=== PATIENT | female | born 1985 | race Caucasian/White ===

== ENCOUNTER 2021-10-09 04:44 | Emergency (ER) | payer MEDICAID, SELFPAY ==
[2021-10-09 04:51] VITALS: BP 145/109; PULSE 91; RESP 16; TEMP 36.6; O2SAT 99; BMI 23.6
--- NOTE | 2021-10-09 06:32 | ED.URI ---
HPI - URI/Sore Throat General Chief Complaint: General Medical Stated Complaint: Sore throat/ +Covid Time Seen by Provider: 10/09/21 06:31 Source: patient Mode of arrival: ambulatory Limitations: no limitations History of Present Illness MD elicited complaint: sore throat Pertinent past history: other (dx with COVID on tuesday) Onset (ago): day(s) (3) Consistency: progressively worsening Severity: moderate Description of mucous: clear Able to tolerate fluids by mouth: Yes Exacerbating factors: swallowing Relieving factors: nothing Context: other (dx with COVID) Associated symptoms: fever, headache and sore throat Treatments prior to arrival: none Related Data Previous Rx's Medication Instructions Recorded azithromycin 250 mg tablet 250 mg PO DAILY 4 Days #4 tab 10/09/21 dexamethasone 6 mg tablet 6 mg PO DAILY 3 Days #3 tab 10/09/21 Allergies Allergy/AdvReac Type Severity Reaction Status Date / Time amoxicillin [AMOXICILLIN] Allergy Unknown NAUSEA & Unverified 06/26/20 16:58 VOMITING Review of Systems Review of Systems: Constitutional : positive Fever, positive Chills, positive fatigue, positive Malaise ENT/Mouth : positive sore throat, positive runny nose Eyes: No Discharge Cardiovascular : No Chest Pain, No SOB Respiratory : No Cough, No Sputum Gastrointestinal : No Nausea, No Vomiting, No Diarrhea Genitourinary : No Dysuria, No Urinary Frequency Musculoskeletal : positive Myalgia Skin : No rash Neuro : No Headache PMFSH Past Medical History Medical History COVID-19 Social History Social History (Updated 10/09/21 @ 07:21 by Vianney Grande DO) Patient Tobacco Use Status: Never used Tobacco Use of substances other than those prescribed or required for medical reasons: No Advance Directives: No Patient : No Physical Exam Vital Signs: Vital Signs: Last Vital Signs Temp 97.8 F 10/09/21 04:51 Pulse 91 10/09/21 04:51 Resp 16 10/09/21 04:51 BP 145/109 H 10/09/21 04:51 Pulse Ox 99 10/09/21 04:51 BMI result Body Mass Index 23.6 Appearance: Alert. Oriented X3. No acute distress. Eyes: Pupils equal, round and reactive to light. ENT: Pharynx ,moderate generalized erythema with moderate swelling to the uvula but no other swelling noted no signs of [employer] - voice normal, able to tolerate secretions Neck: Normal inspection. bilateral tender anterior cervical lymphadenopathy CVS: Normal heart rate and rhythm. Pulses normal. Respiratory: No respiratory distress. Breath sounds normal. no stridor Abdomen: Soft and nontender. Skin: Skin warm and dry. Normal skin color. Normal skin turgor. Extremities: No lower extremity edema. No calf ttp Neuro: Oriented X 3. No motor deficit. No sensory deficit. MDM - URI/Sore Throat MDM Narrative Medical decision making narrative: 35 yo female unvaccinated here with COVID + but now with uvulitis too at this time will treat as presumed bacterial infection start on steroids for symptomatic care, PO antibiotics, she can tolerate secretions no signs of deeper space infection, tolerating secretions, no fevers, no tachycardia, voice normal, no crepitus. Discharge Plan Discharge Clinical Impression: Uvulitis Patient Disposition: Home, Self-Care Instructions: Uvulitis (ED) Additional Instructions: return to ED for any worsening symptoms or concerns Prescriptions: New azithromycin 250 mg tablet 250 mg PO DAILY 4 Days Qty: 4 RF: 0 dexamethasone 6 mg tablet 6 mg PO DAILY 3 Days Qty: 3 RF: 0 Stand Alone Forms: Work/School Release
[2021-10-09 08:03] VITALS: BP 118/74; PULSE 75; RESP 16; TEMP 36.7; O2SAT 98
[2021-10-09] MEDS: Ibuprofen Oral Susp 200 MG/10 ML ORAL.SUSP 600 MG PO (08:58)
[2021-10-09] MEDS: Azithromycin 500 MG TABLET PO (08:58)
[2021-10-09] MEDS: dexAMETHasone sod phosphate 4 MG/ML VIAL 8 MG IVPUSH (08:58)
== END 2021-10-09 09:07 | disposition home or self-care (01) ==
PROVIDERS: Emergency Provider Emergency Medicine
DX: K12.2 Cellulitis and abscess of mouth (principal); Z86.16 Personal history of COVID-19
CPT/HCPCS: 96374; 99284; J1100